=== PATIENT | female | born 1990 | race Caucasian/White ===

== ENCOUNTER 2017-05-30 07:40 | Day surgery (SDC) | payer MEDICAID ==
[2017-05-30] MEDS ORDERED: MIDAZOLAM 1 MG/ML 2 ML INJ ×2 (09:30→09:31)
[2017-05-30] MEDS ORDERED: FENTAnyl 50 MCG/ML VIAL (09:30)
== END 2017-05-30 11:26 | disposition home or self-care (01) ==
LOC: GIL 07:40
DX: R19.4 Change in bowel habit (principal); K21.0 Gastro-esophageal reflux disease with esophagitis; K29.70 Gastritis, unspecified, without bleeding; B96.81 Helicobacter pylori [H. pylori] as the cause of diseases classified elsewhere; K64.8 Other hemorrhoids
CPT/HCPCS: 43239; 87081